=== PATIENT | male | born 1990 | race Caucasian/White ===

== ENCOUNTER 2018-01-08 09:51 | Emergency (ER) | payer MEDICAID ==
[~2018-01-08] VITALS: Ht 180.3 cm; Wt 72.6 kg
[2018-01-08 12:26] VITALS: BP 132/73
== END 2018-01-08 12:38 | disposition home or self-care (01) ==
LOC: ER 09:54
DX: S81.801D Unspecified open wound, right lower leg, subsequent encounter (principal); Z48.89 Encounter for other specified surgical aftercare; V49.9XXD Car occupant (driver) (passenger) injured in unspecified traffic accident, subsequent encounter